=== PATIENT | male | born 1935 | race Caucasian/White ===

== ENCOUNTER → 2019-05-01 | Outpatient (CLI) | payer OTHER ==
--- NOTE | 2019-05-01 15:17 | RAD ---
MR#: [id number] Date of Study: 05/01/2019 Ordering Physician: KWASI JAMISON, Referring Physician: KWASI JAMISON, Tech: Isaiah Pa MBA, RDMS, RVT, RDCS, RTR APPROVED REPORT Patient Location : OUT-PATIENT Indications Lower Extremity Edema : Bilateral Findings Grayscale images of the bilateral saphenofemoral junctions are grossly unremarkable. No obvious thrombus is noted. Spectral waveforms and color Doppler in the bilateral greater and lesser saphenous veins are within n ormal limits and no evidence of reflux is identified. Critical Notification Critical Value: No <Conclusion> Negative for reflux in the bilateral greater and lesser saphenous veins. Signed by : Tristen Lauren, Electronically Approved : 05/01/2019 15:16:36
== END | disposition home or self-care (01) ==
LOC: US 08:50
PROVIDERS: ATTEND Nurse Practitioner
DX: R42 Dizziness and giddiness (principal); R60.0 Localized edema
CPT/HCPCS: 93970